=== PATIENT | female | born 1995 | race Caucasian/White ===

== ENCOUNTER 2017-07-02 09:12 | Emergency (ER) | payer MEDICAID ==
[~2017-07-02] VITALS: Ht 162.6 cm; Wt 91.4 kg
[2017-07-02 09:24] VITALS: Ht 162.6 cm; Wt 91.4 kg
[2017-07-02 10:51] VITALS: BP 147/81
== END 2017-07-02 10:51 | disposition home or self-care (01) ==
LOC: ED 09:12
DX: J03.90 Acute tonsillitis, unspecified (principal)
CPT/HCPCS: J1100

== ENCOUNTER 2017-07-04 00:30 | Emergency (ER) | payer MEDICAID ==
[~2017-07-04] VITALS: Ht 162.6 cm; Wt 93.0 kg
[2017-07-04 00:36] VITALS: Ht 162.6 cm; Wt 93.0 kg
[2017-07-04 01:32] VITALS: BP 136/68
== END 2017-07-04 01:32 | disposition home or self-care (01) ==
LOC: ED 00:30
DX: J03.90 Acute tonsillitis, unspecified (principal)
CPT/HCPCS: J0696; J3010

== ENCOUNTER 2018-04-21 22:48 | Emergency (ER) | payer MEDICAID ==
[~2018-04-21] VITALS: Ht 165.1 cm; Wt 97.1 kg
[2018-04-21 22:52] VITALS: BP 155/83; Ht 165.1 cm; Wt 97.1 kg
== END 2018-04-21 23:45 | disposition home or self-care (01) ==
LOC: ED 22:48
DX: H60.91 Unspecified otitis externa, right ear (principal)
CPT/HCPCS: J1885

== ENCOUNTER 2018-08-21 09:46 | Emergency (ER) | payer MEDICAID ==
[~2018-08-21] VITALS: Ht 162.6 cm; Wt 96.6 kg
[2018-08-21 09:50] VITALS: BP 154/90; Ht 162.6 cm; Wt 96.6 kg
== END 2018-08-21 11:09 | disposition home or self-care (01) ==
LOC: ED 09:46
DX: L25.9 Unspecified contact dermatitis, unspecified cause (principal)
CPT/HCPCS: J1100; Q0163

== ENCOUNTER 2018-08-22 20:50 | Emergency (ER) | payer MEDICAID ==
[~2018-08-22] VITALS: Ht 162.6 cm; Wt 96.7 kg
[2018-08-22 21:47] VITALS: Ht 162.6 cm; Wt 96.7 kg
[2018-08-23 00:31] VITALS: BP 141/86
== END 2018-08-23 00:31 | disposition home or self-care (01) ==
LOC: ED 20:50
DX: L50.0 Allergic urticaria (principal); Z98.890 Other specified postprocedural states
CPT/HCPCS: J1200; J2930; J3490; J7030